=== PATIENT | female | born 1935 | race Caucasian/White ===

== ENCOUNTER 2021-02-23 16:26 | Inpatient (IN) | payer MEDICARE, MEDICAID ==
[2021-02-23] MEDS ORDERED: hydrALAZINE 20 MG/ML VIAL SLOW IVP PRN (18:33)
[2021-02-23] MEDS ORDERED: Ondansetron PF 4 MG/2 ML Vial IVP PRN (18:33)
[2021-02-23] MEDS ORDERED: Ondansetron ODT 4 MG TAB PO PRN (18:33)
[2021-02-23] MEDS ORDERED: Ibuprofen 200 MG TAB PO PRN (18:40)
[2021-02-23 19:08] LABS: #Eosinphils 0.3 thou/uL (0.0-0.7); #Lymphocytes 1.3 thou/uL (1.20-3.40); #Monocytes 0.6 thou/uL (0.11-0.59); #Neutrophils 6.9 thou/uL (1.40-6.50); %Basophils 0.2 % (0.0-1.0); %Eosinophils 3.7 % (0.0-10.0); %Lymphocytes 14.7 % (21.0-51.0); %Monocytes 6.2 % (0.0-10.0); %Neutrophils 75.3 % (42.0-75.0); Hemoglobin 13.4 g/dL (12.0-16.0); Mean Corpuscular HGB CONC 33.9 g/dL (32.0-36.0); Mean Corpuscular Hemoglobin 30.4 pg (27.0-31.0); Mean Corpuscular Volume 89.7 fL (78.0-98.0); Platelet Count 125 thou/uL (130-400); RBC Distribution Width 12.6 % (11.5-14.5); Red Blood Cell (RBC) Count 4.41 mill/uL (4.20-5.40); White Blood Cell (WBC) Count 9.1 thou/uL (4.8-10.8)
[2021-02-23 19:19] LABS: PTT 29.8 sec (22.9-36.1)
[2021-02-23 19:20] LABS: INR-International Normal Ratio 1.1; Prothrombin Time 14.2 sec (12.0-14.7)
[2021-02-23 19:27] LABS: Anion Gap 13 mmol/L (10-20); BUN (Urea Nitrogen) 24 mg/dL (9.8-20.1); Calc. Creatinine Clearance 0 mL/min (70-130); Calcium 9.4 mg/dL (7.8-10.44); Carbon Dioxide 28 mmol/L (23-31); Chloride 107 mmol/L (98-107); Glucose 112 mg/dL (83-110); Magnesium 2.1 mg/dL (1.6-2.6); Phosphorus 3.4 mg/dL (2.3-4.7); Potassium 3.6 mmol/L (3.5-5.1); Sodium 144 mmol/L (136-145)
[2021-02-23] MEDS: D5 1/2 NS w/10 mEq KCl 1,000 ML/1,000 ML BAG IV SCH (20:16)
[2021-02-23] MEDS: Acetaminophen 325 MG TAB PO SCH (20:16)
[2021-02-23] MEDS: Senokot S 8.6-50 MG TAB PO SCH (20:17)
[2021-02-23] MEDS: Gabapentin 100 MG CAP PO SCH (20:17)
[2021-02-23] MEDS: Famotidine/PF 20 mg/2ml Vial SLOW IVP SCH (20:18)
[2021-02-23] MEDS ORDERED: ALPRAZolam 0.25 MG TAB PO SCH (21:00)
[2021-02-23 22:57] LABS: SARS-CoV-2 NAA Rapid Test Not Detected (NotDetected)
[2021-02-23 22:58] VITALS: BMI 20.4
[2021-02-24] MEDS: Acetaminophen 325 MG TAB PO SCH ×4 (01:59→22:02)
[2021-02-24 05:35] LABS: Anion Gap 13 mmol/L (10-20); BUN (Urea Nitrogen) 22 mg/dL (9.8-20.1); Calc. Creatinine Clearance 47 mL/min (70-130); Calcium 8.9 mg/dL (7.8-10.44); Carbon Dioxide 23 mmol/L (23-31); Chloride 109 mmol/L (98-107); Glucose 100 mg/dL (83-110); Potassium 3.4 mmol/L (3.5-5.1); Sodium 142 mmol/L (136-145)
[2021-02-24] MEDS: D5 1/2 NS w/10 mEq KCl 1,000 ML/1,000 ML BAG IV SCH ×2 (06:16→15:46)
[2021-02-24 07:36] LABS: Hemoglobin 13.4 g/dL (12.0-16.0); Mean Corpuscular Hemoglobin 30.1 pg (27.0-31.0); Mean Corpuscular Volume 90.9 fL (78.0-98.0); Mean Platelet Volume 9.3 fL (7.4-10.4); Platelet Count 120 thou/uL (130-400); RBC Distribution Width 12.7 % (11.5-14.5); Red Blood Cell (RBC) Count 4.45 mill/uL (4.20-5.40); White Blood Cell (WBC) Count 8.5 thou/uL (4.8-10.8)
[2021-02-24 08:35] LABS: #Eosinphils 0.9 thou/uL (0.0-0.7); #Lymphocytes 1.3 thou/uL (1.20-3.40); #Monocytes 0.6 thou/uL (0.11-0.59); #Neutrophils 5.8 thou/uL (1.40-6.50); %Basophils 0.4 % (0.0-1.0); %Eosinophils 10.1 % (0.0-10.0); %Lymphocytes 14.9 % (21.0-51.0); %Monocytes 6.7 % (0.0-10.0); %Neutrophils 67.9 % (42.0-75.0); Band 1 % (5-11); Eosinophils 10 % (0-10); Lymphocytes 13 % (21-51); MDiff Complete? YES; Monocytes 9 % (0-10); Neutrophil 64 % (42-75); Platelet Morphology Comment Appears Adequate; Reactive Lymphocytes 2 % (0-10)
[2021-02-24] MEDS: Famotidine/PF 20 mg/2ml Vial SLOW IVP SCH ×2 (09:00→22:03)
[2021-02-24] MEDS: Polyethylene Glycol 3350 17 GM Packet PO SCH ×2 (09:00→11:15)
[2021-02-24] MEDS: Senokot S 8.6-50 MG TAB PO SCH ×2 (09:00→22:45)
[2021-02-24] MEDS: Atorvastatin Calcium 10 MG TAB PO SCH (09:00)
[2021-02-24] MEDS: Gabapentin 100 MG CAP PO SCH ×3 (09:00→22:01)
[2021-02-24] MEDS: Cyclobenzaprine 10 MG TAB PO PRN (09:00)
[2021-02-24] MEDS: Multivitamin W/ Minerals 1 TAB PO SCH (09:00)
[2021-02-24] MEDS: Dextrose 5 %-0.45 % NaCl 1,000 ML IV SCH (14:00)
[2021-02-24] MEDS ORDERED: Potassium Phosphate 30 MMOL in Sodium Chloride 0.9% 500 ML IVPB SCH (14:00)
[2021-02-24] MEDS ORDERED: D5 1/2 NS w/20 mEq KCL 1,000 ML IV SCH (14:00)
[2021-02-24] MEDS ORDERED: Potassium Phosphate 30 MMOL in Sodium Chloride 0.9% 250 ML 250 ML IVPB SCH (14:00)
[2021-02-24] MEDS: Heparin 5,000 UNITS/ML VIAL SC SCH ×2 (15:57→22:03)
[2021-02-24 18:05] LABS: INR-International Normal Ratio 1.1; PTT 34.3 sec (22.9-36.1); Prothrombin Time 13.7 sec (12.0-14.7)
[2021-02-24] MEDS ORDERED: Donepezil HCl 10 MG TAB PO SCH (21:00)
[2021-02-25] MEDS: Acetaminophen 325 MG TAB PO SCH ×2 (02:36→10:24)
[2021-02-25] MEDS: Dextrose 5 %-0.45 % NaCl 1,000 ML IV SCH (04:02)
[2021-02-25 05:27] LABS: Anion Gap 10 mmol/L (10-20); BUN (Urea Nitrogen) 12 mg/dL (9.8-20.1); Calc. Creatinine Clearance 58 mL/min (70-130); Calcium 8.4 mg/dL (7.8-10.44); Carbon Dioxide 26 mmol/L (23-31); Chloride 109 mmol/L (98-107); Glucose 97 mg/dL (83-110); Magnesium 1.8 mg/dL (1.6-2.6); Phosphorus 3.8 mg/dL (2.3-4.7); Potassium 3.1 mmol/L (3.5-5.1); Sodium 142 mmol/L (136-145)
[2021-02-25] MEDS ORDERED: Magnesium 2 GM/50 ML 2 GM in Premix Bag 1 BAG IVPB SCH (08:00)
[2021-02-25] MEDS ORDERED: Potassium Phosphate 15 MMOL in Sodium Chloride 0.9% 250 ML 250 ML IVPB SCH (09:00)
[2021-02-25] MEDS: Atorvastatin Calcium 10 MG TAB PO SCH (10:24)
[2021-02-25] MEDS: Multivitamin W/ Minerals 1 TAB PO SCH (10:24)
[2021-02-25] MEDS: Gabapentin 100 MG CAP PO SCH ×2 (10:30→15:10)
[2021-02-25] MEDS: Heparin 5,000 UNITS/ML VIAL SC SCH ×2 (10:31→15:12)
[2021-02-25] MEDS: Senokot S 8.6-50 MG TAB PO SCH (10:32)
[2021-02-25] MEDS: Polyethylene Glycol 3350 17 GM Packet PO SCH (10:32)
[2021-02-25] MEDS: Cyclobenzaprine 10 MG TAB PO PRN (10:44)
[2021-02-25 15:44] VITALS: BP 116/69; TEMP 98.7
== END 2021-02-25 17:43 | DRG 536 ==
LOC: SURG A 16:26
PROVIDERS: ADMIT Specialist; ATTEND Specialist
DX: S72.141A Displaced intertrochanteric fracture of right femur, initial encounter for closed fracture (principal); I10 Essential (primary) hypertension; F03.90 Unspecified dementia, unspecified severity, without behavioral disturbance, psychotic disturbance, mood disturbance, and anxiety; W18.30XA Fall on same level, unspecified, initial encounter; Z20.822 Contact with and (suspected) exposure to COVID-19; Z96.651 Presence of right artificial knee joint; Z85.3 Personal history of malignant neoplasm of breast; Y92.129 Unspecified place in nursing home as the place of occurrence of the external cause; Z98.890 Other specified postprocedural states; Z90.10 Acquired absence of unspecified breast and nipple
CPT/HCPCS: 36415; 80048; 83735; 84100; 85025; 85610; 85730; 86850; 86900; 86901; J1644; J3475; J3480; J7042; J7050; S0028; U0002